=== PATIENT | female | born 1995 | race African-American/Black ===

== ENCOUNTER 2022-01-08 14:27 | Emergency (ER) | payer BC, OTHER ==
[~2022-01-08] VITALS: Ht 177.8 cm; Wt 98.0 kg
[2022-01-08 14:34] VITALS: BP 161/92
[2022-01-08] MEDS ORDERED: ALBU6.7H15 INH (18:11)
== END 2022-01-08 19:36 | disposition home or self-care (01) ==
LOC: ER 14:27
DX: U07.1 COVID-19 (principal)
CPT/HCPCS: 99283